=== PATIENT | male | born 1970 | race Caucasian/White ===

== ENCOUNTER 2024-04-27 09:21 | Outpatient (CLI) | payer BC, SELFPAY ==
--- NOTE | 2024-04-27 09:50 | W.ANESCHARGE ---
Anesthesia Charges Start Date/Time Anesthesia Start Date: 04/27/24 Anesthesia Start Time: 10:10 Stop Date/Time Anesthesia Stop Date: 04/27/24 Anesthesia Stop Time: 10:32
--- NOTE | 2024-04-27 10:43 | W.ANESCHARGE ---
Anesthesia Charges Start Date/Time Anesthesia Start Date: 04/27/24 Anesthesia Start Time: 10:10 Stop Date/Time Anesthesia Stop Date: 04/27/24 Anesthesia Stop Time: 10:32
== END 2024-04-27 09:22 | disposition home or self-care (01) ==
PROVIDERS: PCP Physician Assistant Medical; Visit Provider Internal Medicine Gastroenterology
DX: K21.9 Gastro-esophageal reflux disease without esophagitis (principal); R10.13 Epigastric pain
CPT/HCPCS: 00731; 43239; 88305; J2704; J3490